=== PATIENT | female | born 1950 | race Caucasian/White ===

== ENCOUNTER 2017-02-21 16:37 | Emergency (ER) | payer MEDICARE, MEDICAID ==
[~2017-02-21] VITALS: Ht 157.5 cm; Wt 38.5 kg
[2017-02-21 16:56] VITALS: BP 112/76
== END 2017-02-21 17:52 | disposition home or self-care (01) ==
LOC: ED 17:46
DX: Z76.0 Encounter for issue of repeat prescription (principal); M54.5 Low back pain; G89.29 Other chronic pain; M19.90 Unspecified osteoarthritis, unspecified site
CPT/HCPCS: 99283

== ENCOUNTER 2017-10-12 19:36 | Inpatient (IN) | payer MEDICAID, MEDICARE ==
[~2017-10-12] VITALS: Ht 157.5 cm; Wt 43.8 kg
[2017-10-12] MEDS ORDERED: ALBUTEROL/IPRATROPIUM 2.5MG/0.5MG, 3 ML ONE (20:29)
[2017-10-12] MEDS ORDERED: SODIUM CHLORIDE FLUSH 10ML SYR IVF ONE (20:30)
[2017-10-12] MEDS ORDERED: ALBUTEROL/IPRATROPIUM 2.5MG/0.5MG, 3 ML NPPB ONE (20:30)
[2017-10-12] MEDS ORDERED: CEFTRIAXONE PMX 1GM/50ML 50 ML IVPB ONE (20:30)
[2017-10-12] MEDS ORDERED: AZITHROMYCIN 500 MG in SODIUM CHLORIDE 0.9% 250 ML IVPB ONE (20:30)
[2017-10-12] MEDS ORDERED: methylPREDNISolone SOD SUCC 125 MG/2 ML IVP ONE (20:30)
[2017-10-12] MEDS ORDERED: SODIUM CHLORIDE 0.9% 1,000ML IVBOLUS ONE (20:30)
[2017-10-12] MEDS ORDERED: HYDR-882 PO (20:31)
[2017-10-12] MEDS ORDERED: BACL-19 PO (20:31)
[2017-10-12] MEDS ORDERED: GABA600T2 PO (20:31)
[2017-10-12] MEDS ORDERED: methylPREDNISolone SOD SUCC 125 MG/2 ML ONE (20:39)
[2017-10-12] MEDS ORDERED: MORPHINE SULFATE 4 MG/ML, 1ML ONE (20:39)
[2017-10-12] MEDS: MORPHINE SULFATE 4 MG/ML, 1ML IVPush PRN (20:44)
[2017-10-12 20:56] LABS: MEAN CORPUSCULAR HEMOGLOBIN 26.2 pg (27.0-34.8); MEAN CORPUSCULAR HGB CONC 31.9 g/dL (32.4-35.8); MEAN CORPUSCULAR VOLUME 82.1 fL (80-100); MEAN PLATELET VOLUME 8.3 fL (7.4-10.4); PLATELET COUNT 383 x10^3/uL (130-400); RED BLOOD COUNT 4.56 x10^6/uL (3.82-5.3); RED CELL DISTRIBUTION WIDTH 22.4 % (9.6-15.2)
[2017-10-12] MEDS ORDERED: CEFTRIAXONE PMX 1GM/50ML 50 ML ONE (20:59)
[2017-10-12 21:03] LABS: ALANINE AMINOTRANSFERASE 24 U/L (12-78); ALBUMIN 2.6 g/dL (3.4-5.0); ANION GAP 3 mmol/L (5-15); CHLORIDE 106 mmol/L (98-107); CREATININE 0.62 mg/dL (0.55-1.02)
[2017-10-12 21:07] LABS: ALKALINE PHOSPHATASE 158 U/L (45-117); BILIRUBIN,TOTAL 0.4 mg/dL (0.2-1.0); TOTAL PROTEIN 8.7 g/dL (6.4-8.2)
[2017-10-12 21:08] LABS: BASOPHILS # (AUTO) 0.05 x10^3/uL (0-0.1); BASOPHILS % (AUTO) 0 % (0-1); EOSINOPHILS % (AUTO) 0 % (1-7); LYMPHOCYTES # (AUTO) 0.98 x10^3/uL (1-3.4); LYMPHOCYTES % (AUTO) 5 % (22-44); MD MORPH REVIEW ONLY; MONOCYTES # (AUTO) 0.34 x10^3/uL (0.2-0.8); MONOCYTES % (AUTO) 2 % (2-9); NEUTROPHILS % (AUTO) 94 % (42-75)
[2017-10-12 21:09] LABS: ANISOCYTOSIS 1+; POLYCHROMASIA 1+
[2017-10-12 21:10] LABS: <PLATELET ESTIMATE> ADEQUATE; LARGE PLATELETS 1+
[2017-10-12 21:14] LABS: TROPONIN I 0.162 ng/mL (0.000-0.045)
[2017-10-12] MEDS ORDERED: CEFTRIAXONE PMX 1GM/50ML 50 ML IV SCH (23:30)
[2017-10-12] MEDS ORDERED: ACETAMINOPHEN 325 MG TABLET PO PRN (23:30)
[2017-10-12] MEDS ORDERED: TEMPLATE NON-FORMULARY MED. (Gabapentin** 600 MG) PO SCH (23:30)
[2017-10-12] MEDS ORDERED: GUAIFENESIN/DM 200-20MG, 10ML UDC PO PRN (23:30)
[2017-10-12] MEDS ORDERED: BISACODYL 10 MG SUPP PR PRN (23:30)
[2017-10-12] MEDS ORDERED: AZITHROMYCIN 500 MG in SODIUM CHLORIDE 0.9% 250 ML IV SCH (23:30)
[2017-10-12] MEDS ORDERED: ONDANSETRON 2MG/ML, 2ML IVPush PRN (23:30)
[2017-10-12] MEDS ORDERED: POLYETHYLENE GLYCOL 17 GM PACKET PO PRN (23:30)
[2017-10-13] MEDS ORDERED: methylPREDNISolone SOD SUCC 125 MG/2 ML ONE ×2 (00:41→07:00)
[2017-10-13] MEDS ORDERED: HEPARIN 5,000 UNITS/ML, 1ML ONE ×2 (00:41→08:38)
[2017-10-13] MEDS ORDERED: MORPHINE SULFATE 4 MG/ML, 1ML ONE (00:41)
[2017-10-13] MEDS ORDERED: GABAPENTIN 300 MG CAPSULE ONE ×3 (00:41→09:33)
[2017-10-13] MEDS: methylPREDNISolone SOD SUCC 125 MG/2 ML IVPush SCH ×4 (00:51→20:10)
[2017-10-13] MEDS: MORPHINE SULFATE 4 MG/ML, 1ML IVPush PRN (00:51)
[2017-10-13] MEDS: HEPARIN 5,000 UNITS/ML, 1ML SQ SCH ×3 (00:51→17:22)
[2017-10-13] MEDS: SODIUM CHLORIDE 0.9% 1,000 ML IV SCH ×2 (00:52→09:21)
[2017-10-13] MEDS ORDERED: NICOTINE 7 MG/24 HR PATCH.TD24 ONE (01:50)
[2017-10-13] MEDS: NICOTINE 7 MG/24 HR PATCH.TD24 TD SCH ×2 (01:56→23:36)
[2017-10-13] MEDS: BACLOFEN 10 MG TABLET PO SCH ×5 (01:56→20:11)
[2017-10-13 02:49] LABS: MEAN CORPUSCULAR HEMOGLOBIN 26.6 pg (27.0-34.8); MEAN CORPUSCULAR HGB CONC 31.5 g/dL (32.4-35.8); MEAN CORPUSCULAR VOLUME 84.2 fL (80-100); MEAN PLATELET VOLUME 8.3 fL (7.4-10.4); PLATELET COUNT 315 x10^3/uL (130-400); RED BLOOD COUNT 4.15 x10^6/uL (3.82-5.3); RED CELL DISTRIBUTION WIDTH 22.1 % (9.6-15.2)
[2017-10-13 02:55] LABS: ALBUMIN 2.3 g/dL (3.4-5.0); ANION GAP 4 mmol/L (5-15); CALCIUM 8.2 mg/dL (8.5-10.1); CHLORIDE 108 mmol/L (98-107)
[2017-10-13 03:00] LABS: ALANINE AMINOTRANSFERASE 20 U/L (12-78); ALKALINE PHOSPHATASE 136 U/L (45-117); BILIRUBIN,TOTAL 0.5 mg/dL (0.2-1.0); TOTAL PROTEIN 7.7 g/dL (6.4-8.2)
[2017-10-13 03:06] LABS: TROPONIN I 0.156 ng/mL (0.000-0.045)
[2017-10-13 03:26] LABS: MD YES
[2017-10-13 03:28] LABS: ANISOCYTOSIS 1+; LYMPH#(MANUAL) 0.39 x10^3/uL (1-3.4); LYMPHS% (MANUAL) 2 % (22-44); MONOS#(MANUAL) 0.19 x10^3/uL (0.3-2.7); MONOS% (MANUAL) 1 % (2-9); POLYCHROMASIA 1+; SEG#(MANUAL) 18.72 x10^3/uL (1.8-6.8); SEGS% (MANUAL) 97 % (42-75)
[2017-10-13 03:29] LABS: <PLATELET ESTIMATE> ADEQUATE; LARGE PLATELETS 1+
[2017-10-13 03:36] LABS: HEMOGLOBIN A1C 6.4 % (4.2-6.3)
[2017-10-13] MEDS ORDERED: ALBUTEROL/IPRATROPIUM 2.5MG/0.5MG, 3 ML ONE ×3 (03:36→10:26)
[2017-10-13] MEDS ORDERED: ALBUTEROL/IPRATROPIUM 2.5MG/0.5MG, 3 ML NPPB PRN (04:00)
[2017-10-13] MEDS: ALBUTEROL/IPRATROPIUM 2.5MG/0.5MG, 3 ML NPPB SCH ×4 (07:01→20:55)
[2017-10-13] MEDS ORDERED: SENNA/DOCUSATE TABLET ONE (08:38)
[2017-10-13 09:12] LABS: TROPONIN I 0.113 ng/mL (0.000-0.045)
[2017-10-13] MEDS: SENNA/DOCUSATE TABLET PO SCH (09:27)
[2017-10-13] MEDS: GABAPENTIN 300 MG CAPSULE PO SCH ×2 (09:28→20:10)
[2017-10-13 09:49] LABS: RAPID INFLUENZA A Negative (Negative); RAPID INFLUENZA B Negative (Negative)
[2017-10-13] MEDS ORDERED: CEFTRIAXONE 1,000 MG in DEXTROSE 5% 50 ML IV SCH (14:00)
[2017-10-13 14:33] VITALS: BP 96/60
[2017-10-13] MEDS ORDERED: FUROSEMIDE 20 MG/2 ML IV ONE (16:30)
[2017-10-13] MEDS ORDERED: CEFTRIAXONE PMX 2GM/50ML 50 ML IV SCH (17:00)
[2017-10-13 17:03] LABS: MICROSCOPIC INDICATED
[2017-10-13 17:13] LABS: CULTURE INDICATED? YES
[2017-10-13] MEDS: ENOXAPARIN 40 MG/0.4 ML SQ SCH (17:44)
[2017-10-13 19:13] LABS: CLOSTRIDIUM DIFFICILE ANTIGEN NEGATIVE; CLOSTRIDIUM DIFFICILE TOXIN NEGATIVE (Negative)
[2017-10-13 21:06] VITALS: BP 133/75
[2017-10-13] MEDS: TEMAZEPAM 15 MG CAPSULE PO PRN (22:06)
[2017-10-13] MEDS: AZITHROMYCIN 500 MG in SODIUM CHLORIDE 0.9% 250 ML IV SCH (23:37)
[2017-10-14] MEDS: CEFTRIAXONE 2 GM in DEXTROSE 5% 50 ML IV SCH (02:49)
[2017-10-14] MEDS: methylPREDNISolone SOD SUCC 125 MG/2 ML IVPush SCH ×3 (02:49→18:17)
[2017-10-14] MEDS: NICOTINE 7 MG/24 HR PATCH.TD24 TD SCH (02:49)
[2017-10-14 03:19] VITALS: BP 115/72
[2017-10-14 06:53] VITALS: BP 112/63
[2017-10-14] MEDS: ALBUTEROL/IPRATROPIUM 2.5MG/0.5MG, 3 ML NPPB SCH ×4 (07:31→21:45)
[2017-10-14] MEDS: SENNA/DOCUSATE TABLET PO SCH (09:00)
[2017-10-14] MEDS: GABAPENTIN 300 MG CAPSULE PO SCH ×2 (09:19→21:13)
[2017-10-14] MEDS: BACLOFEN 10 MG TABLET PO SCH ×3 (09:19→21:13)
[2017-10-14 09:24] LABS: BASOPHILS % (AUTO) 0 % (0-1); EOSINOPHILS % (AUTO) 0 % (1-7); LYMPHOCYTES # (AUTO) 0.81 x10^3/uL (1-3.4); LYMPHOCYTES % (AUTO) 7 % (22-44); MEAN CORPUSCULAR HEMOGLOBIN 26.6 pg (27.0-34.8); MEAN CORPUSCULAR HGB CONC 32.4 g/dL (32.4-35.8); MEAN CORPUSCULAR VOLUME 82.1 fL (80-100); MEAN PLATELET VOLUME 8.4 fL (7.4-10.4); MONOCYTES # (AUTO) 0.32 x10^3/uL (0.2-0.8); MONOCYTES % (AUTO) 3 % (2-9); NEUTROPHILS # (AUTO) 10.28 x10^3/uL (1.8-6.8); NEUTROPHILS % (AUTO) 90 % (42-75); PLATELET COUNT 361 x10^3/uL (130-400); RED BLOOD COUNT 3.43 x10^6/uL (3.82-5.3); RED CELL DISTRIBUTION WIDTH 21.7 % (9.6-15.2)
[2017-10-14 09:25] LABS: MD NO
[2017-10-14 09:30] LABS: ALANINE AMINOTRANSFERASE 34 U/L (12-78); ALBUMIN 2.2 g/dL (3.4-5.0); ANION GAP 5 mmol/L (5-15); CALCIUM 8.3 mg/dL (8.5-10.1); CHLORIDE 104 mmol/L (98-107); CREATININE 0.65 mg/dL (0.55-1.02)
[2017-10-14 09:33] LABS: ALKALINE PHOSPHATASE 126 U/L (45-117); BILIRUBIN,TOTAL 0.2 mg/dL (0.2-1.0); TOTAL PROTEIN 6.8 g/dL (6.4-8.2)
[2017-10-14 09:40] LABS: HEMOGRAM NOTE RECHECKED
[2017-10-14 13:24] VITALS: BP 125/70
[2017-10-14] MEDS: ENOXAPARIN 40 MG/0.4 ML SQ SCH (18:17)
[2017-10-14 19:35] VITALS: BP 116/64
[2017-10-14] MEDS: TEMAZEPAM 15 MG CAPSULE PO PRN (21:13)
[2017-10-15] MEDS: methylPREDNISolone SOD SUCC 125 MG/2 ML IVPush SCH ×2 (00:01→05:41)
[2017-10-15] MEDS: AZITHROMYCIN 500 MG in SODIUM CHLORIDE 0.9% 250 ML IV SCH (00:01)
[2017-10-15 02:55] VITALS: BP_SYST 124; BP_SYST 130; BP_DIAS 63; BP_DIAS 66
[2017-10-15] MEDS: CEFTRIAXONE 2 GM in DEXTROSE 5% 50 ML IV SCH (03:18)
[2017-10-15] MEDS: NICOTINE 7 MG/24 HR PATCH.TD24 TD SCH (03:18)
[2017-10-15 05:36] LABS: BASOPHILS # (AUTO) 0.01 x10^3/uL (0-0.1); BASOPHILS % (AUTO) 0 % (0-1); EOSINOPHILS % (AUTO) 0 % (1-7); LYMPHOCYTES # (AUTO) 0.77 x10^3/uL (1-3.4); LYMPHOCYTES % (AUTO) 8 % (22-44); MD NO; MEAN CORPUSCULAR HEMOGLOBIN 26.4 pg (27.0-34.8); MEAN CORPUSCULAR HGB CONC 31.8 g/dL (32.4-35.8); MEAN CORPUSCULAR VOLUME 82.8 fL (80-100); MEAN PLATELET VOLUME 7.9 fL (7.4-10.4); MONOCYTES # (AUTO) 0.21 x10^3/uL (0.2-0.8); MONOCYTES % (AUTO) 2 % (2-9); NEUTROPHILS # (AUTO) 9.08 x10^3/uL (1.8-6.8); NEUTROPHILS % (AUTO) 90 % (42-75); PLATELET COUNT 396 x10^3/uL (130-400); RED BLOOD COUNT 3.51 x10^6/uL (3.82-5.3); RED CELL DISTRIBUTION WIDTH 21.3 % (9.6-15.2)
[2017-10-15 05:46] LABS: CHLORIDE 105 mmol/L (98-107)
[2017-10-15 05:57] LABS: ALANINE AMINOTRANSFERASE 60 U/L (12-78); ALBUMIN 2.2 g/dL (3.4-5.0); ALKALINE PHOSPHATASE 118 U/L (45-117); ANION GAP 6 mmol/L (5-15); BILIRUBIN,TOTAL 0.5 mg/dL (0.2-1.0); CALCIUM 8.3 mg/dL (8.5-10.1); CREATININE 0.61 mg/dL (0.55-1.02); TOTAL PROTEIN 6.4 g/dL (6.4-8.2)
[2017-10-15] MEDS: ALBUTEROL/IPRATROPIUM 2.5MG/0.5MG, 3 ML NPPB SCH ×4 (06:24→20:35)
[2017-10-15 07:26] VITALS: BP 130/66
[2017-10-15] MEDS: GABAPENTIN 300 MG CAPSULE PO SCH ×2 (07:28→19:50)
[2017-10-15] MEDS: BACLOFEN 10 MG TABLET PO SCH ×3 (07:28→19:50)
[2017-10-15] MEDS: SENNA/DOCUSATE TABLET PO SCH (07:28)
[2017-10-15 14:06] VITALS: BP 142/79
[2017-10-15] MEDS: ENOXAPARIN 40 MG/0.4 ML SQ SCH (17:30)
[2017-10-15 20:00] VITALS: BP 158/76
[2017-10-15] MEDS: TEMAZEPAM 15 MG CAPSULE PO PRN (22:09)
[2017-10-16] MEDS: AZITHROMYCIN 500 MG in SODIUM CHLORIDE 0.9% 250 ML IV SCH (00:12)
[2017-10-16 02:00] VITALS: BP 131/68
[2017-10-16 05:55] LABS: CHLORIDE 103 mmol/L (98-107)
[2017-10-16 06:05] LABS: ALANINE AMINOTRANSFERASE 64 U/L (12-78); ALBUMIN 2.3 g/dL (3.4-5.0); ALKALINE PHOSPHATASE 107 U/L (45-117); ANION GAP 3 mmol/L (5-15); BILIRUBIN,TOTAL 0.4 mg/dL (0.2-1.0); CALCIUM 8.4 mg/dL (8.5-10.1); CREATININE 0.49 mg/dL (0.55-1.02); TOTAL PROTEIN 6.7 g/dL (6.4-8.2)
[2017-10-16 06:08] LABS: BASOPHILS # (AUTO) 0.02 x10^3/uL (0-0.1); BASOPHILS % (AUTO) 0 % (0-1); EOSINOPHILS % (AUTO) 0 % (1-7); LYMPHOCYTES # (AUTO) 2.19 x10^3/uL (1-3.4); LYMPHOCYTES % (AUTO) 19 % (22-44); MD NO; MEAN CORPUSCULAR HEMOGLOBIN 26.7 pg (27.0-34.8); MEAN CORPUSCULAR HGB CONC 31.3 g/dL (32.4-35.8); MEAN CORPUSCULAR VOLUME 85.3 fL (80-100); MEAN PLATELET VOLUME 8.1 fL (7.4-10.4); MONOCYTES # (AUTO) 0.83 x10^3/uL (0.2-0.8); MONOCYTES % (AUTO) 7 % (2-9); NEUTROPHILS % (AUTO) 74 % (42-75); PLATELET COUNT 449 x10^3/uL (130-400); RED BLOOD COUNT 3.89 x10^6/uL (3.82-5.3)
[2017-10-16] MEDS: NICOTINE 7 MG/24 HR PATCH.TD24 TD SCH (06:12)
[2017-10-16] MEDS: CEFTRIAXONE 2 GM in DEXTROSE 5% 50 ML IV SCH (06:13)
[2017-10-16 07:17] VITALS: BP 137/69
[2017-10-16] MEDS: ALBUTEROL/IPRATROPIUM 2.5MG/0.5MG, 3 ML NPPB SCH ×4 (07:40→20:30)
[2017-10-16] MEDS: SENNA/DOCUSATE TABLET PO SCH (09:00)
[2017-10-16] MEDS: BACLOFEN 10 MG TABLET PO SCH ×3 (09:19→20:58)
[2017-10-16] MEDS: GABAPENTIN 300 MG CAPSULE PO SCH ×2 (09:20→20:58)
[2017-10-16 14:17] VITALS: BP 134/67
[2017-10-16] MEDS: ENOXAPARIN 40 MG/0.4 ML SQ SCH (16:31)
[2017-10-16 20:00] VITALS: BP 159/64
[2017-10-16] MEDS: TEMAZEPAM 15 MG CAPSULE PO PRN (21:44)
[2017-10-17] MEDS: AZITHROMYCIN 500 MG in SODIUM CHLORIDE 0.9% 250 ML IV SCH (01:01)
[2017-10-17 02:00] VITALS: BP 144/72
[2017-10-17] MEDS: CEFTRIAXONE 2 GM in DEXTROSE 5% 50 ML IV SCH (05:29)
[2017-10-17] MEDS: NICOTINE 7 MG/24 HR PATCH.TD24 TD SCH (05:29)
[2017-10-17] MEDS: ALBUTEROL/IPRATROPIUM 2.5MG/0.5MG, 3 ML NPPB SCH ×2 (07:00→11:00)
[2017-10-17 08:04] VITALS: BP 128/69
[2017-10-17] MEDS: BACLOFEN 10 MG TABLET PO SCH (08:14)
[2017-10-17] MEDS: GABAPENTIN 300 MG CAPSULE PO SCH (08:14)
[2017-10-17] MEDS: SENNA/DOCUSATE TABLET PO SCH ×2 (08:14→08:17)
[2017-10-17] MEDS ORDERED: PRED10TA PO (08:34)
== END 2017-10-17 15:26 | disposition home or self-care (01) | DRG 871 ==
LOC: ED 21:42 → EDIP 22:38 → 4EST 10-13 13:35
PROVIDERS: ADMIT Hospitalist; ATTEND Hospitalist
DX: A41.9 Sepsis, unspecified organism (principal); J96.01 Acute respiratory failure with hypoxia; E43 Unspecified severe protein-calorie malnutrition; J18.0 Bronchopneumonia, unspecified organism; J81.1 Chronic pulmonary edema; Z99.81 Dependence on supplemental oxygen; N39.0 Urinary tract infection, site not specified; J44.1 Chronic obstructive pulmonary disease with (acute) exacerbation; J44.0 Chronic obstructive pulmonary disease with (acute) lower respiratory infection; F11.20 Opioid dependence, uncomplicated; M54.9 Dorsalgia, unspecified; R73.9 Hyperglycemia, unspecified; M19.90 Unspecified osteoarthritis, unspecified site; I73.9 Peripheral vascular disease, unspecified; G89.29 Other chronic pain; F17.210 Nicotine dependence, cigarettes, uncomplicated; D64.9 Anemia, unspecified; E74.39 Other disorders of intestinal carbohydrate absorption; Z85.41 Personal history of malignant neoplasm of cervix uteri; Z90.89 Acquired absence of other organs; Z89.512 Acquired absence of left leg below knee
CPT/HCPCS: 36415; 71045; 80053; 81001; 83036; 83605; 83735; 83880; 84100; 84145; 84484; 85025; 87040; 87070; 87086; 87205; 87324; 87400; 93005; 93306; 94640; 96365; 96368; 96375; J0456; J0696; J1644; J1650; J7620; J1940; J2930; J7030; J7050; J7512

== ENCOUNTER 2017-12-07 18:03 | Inpatient (IN) | payer MEDICARE ==
[~2017-12-07] VITALS: Ht 152.4 cm; Wt 61.5 kg
[~2017-12-07 18:03] MED LIST: BACL-19 PO; GABA600T2 PO; HYDR-882 PO; PRED10TA PO
[2017-12-07] MEDS ORDERED: AMPICILLIN/SULBACTAM 1,500 MG in SODIUM CHLORIDE 0.9% 50 ML IV STA (18:28)
[2017-12-07] MEDS ORDERED: ALBUTEROL SULFATE 2.5 MG/3 ML NPPB ONE (18:30)
[2017-12-07] MEDS ORDERED: GABA300C10 PO (18:38)
[2017-12-07] MEDS ORDERED: UMEC1DIS INH (18:40)
[2017-12-07] MEDS ORDERED: ALBUTEROL SULFATE 2.5 MG/3 ML ONE (18:42)
[2017-12-07 18:50] LABS: BASOPHILS # (AUTO) 0.12 x10^3/uL (0-0.1); BASOPHILS % (AUTO) 1 % (0-1); EOSINOPHILS # (AUTO) 0.36 x10^3/uL (0-0.4); EOSINOPHILS % (AUTO) 4 % (1-7); LYMPHOCYTES # (AUTO) 2.53 x10^3/uL (1-3.4); LYMPHOCYTES % (AUTO) 27 % (22-44); MD NO; MEAN CORPUSCULAR HEMOGLOBIN 27.7 pg (27.0-34.8); MEAN CORPUSCULAR HGB CONC 32.1 g/dL (32.4-35.8); MEAN CORPUSCULAR VOLUME 86.2 fL (80-100); MEAN PLATELET VOLUME 9.1 fL (7.4-10.4); MONOCYTES # (AUTO) 0.81 x10^3/uL (0.2-0.8); MONOCYTES % (AUTO) 9 % (2-9); NEUTROPHILS # (AUTO) 5.72 x10^3/uL (1.8-6.8); NEUTROPHILS % (AUTO) 60 % (42-75); PLATELET COUNT 358 x10^3/uL (130-400); RED BLOOD COUNT 4.08 x10^6/uL (3.82-5.3); RED CELL DISTRIBUTION WIDTH 20.1 % (9.6-15.2)
[2017-12-07 19:00] LABS: ALBUMIN 3.1 g/dL (3.4-5.0); ANION GAP 5 mmol/L (5-15); CALCIUM 8.7 mg/dL (8.5-10.1); CHLORIDE 106 mmol/L (98-107); CREATININE 0.63 mg/dL (0.55-1.02)
[2017-12-07] MEDS ORDERED: MUPIROCIN OINT 2%, 22GM TP SCH (21:00)
[2017-12-07 21:30] VITALS: BP 108/67
[2017-12-07] MEDS ORDERED: SODIUM CHLORIDE 0.9% 1,000 ML IV SCH (21:42)
[2017-12-07] MEDS ORDERED: morphine SULFATE 10 MG/ML, 1ML IVPush PRN (22:00)
[2017-12-07] MEDS ORDERED: HYDROcodone/APAP 5/325 TABLET PO PRN (22:00)
[2017-12-07] MEDS ORDERED: DOCUSATE 100 MG CAPSULE PO PRN (22:00)
[2017-12-07] MEDS ORDERED: hydrALAzine 20 MG/ML, 1ML IVPush PRN (22:00)
[2017-12-07] MEDS ORDERED: ALBUTEROL/IPRATROPIUM 2.5MG/0.5MG, 3 ML NPPB PRN (22:00)
[2017-12-07] MEDS ORDERED: ONDANSETRON 2MG/ML, 2ML IVPush PRN (22:00)
[2017-12-07] MEDS ORDERED: ONDANSETRON ODT 4 MG PO PRN (22:00)
[2017-12-07] MEDS ORDERED: POLYETHYLENE GLYCOL 17 GM PACKET PO PRN (22:00)
[2017-12-07] MEDS ORDERED: VANCOMYCIN PMX 1GM/200ML 200 ML IV ONE ×2 (22:00→22:30)
[2017-12-07] MEDS ORDERED: ACETAMINOPHEN 325 MG TABLET PO PRN (22:00)
[2017-12-07] MEDS ORDERED: BISACODYL 10 MG SUPP PR PRN (22:00)
[2017-12-07] MEDS ORDERED: PROMETHAZINE 25 MG/ML, 1ML IM PRN (22:00)
[2017-12-07] MEDS ORDERED: VANCOMYCIN PER PHARMACY MC PRN (22:00)
[2017-12-07] MEDS: NICOTINE 7 MG/24 HR PATCH.TD24 TD SCH (22:17)
[2017-12-07] MEDS: HEPARIN 5,000 UNITS/ML, 1ML SQ SCH (22:17)
[2017-12-07] MEDS: BACLOFEN 10 MG TABLET PO SCH (22:17)
[2017-12-07] MEDS: GABAPENTIN 300 MG CAPSULE PO SCH (22:17)
[2017-12-07] MEDS: AMPICILLIN/SULBACTAM 3 GM in SODIUM CHLORIDE 0.9% 100 ML IV SCH (22:21)
[2017-12-07 22:28] LABS: HEMOGLOBIN A1C 5.9 % (4.2-6.3)
[2017-12-07] MEDS ORDERED: PHARMACOKINETIC CONSULTATION MC ONE (22:30)
[2017-12-07] MEDS ORDERED: PHARMACOKINETIC MONITORING MC PRN (22:30)
[2017-12-07 22:31] LABS: FREE T4 (FREE THYROXINE) 1.13 ng/dL (0.76-1.46); THYROID STIMULATING HORMONE 1.25 mIU/L (0.358-3.740)
[2017-12-08 02:00] VITALS: BP 109/61
[2017-12-08 04:00] VITALS: BP 127/77
[2017-12-08] MEDS: AMPICILLIN/SULBACTAM 3 GM in SODIUM CHLORIDE 0.9% 100 ML IV SCH (04:21)
[2017-12-08 05:10] LABS: BASOPHILS # (AUTO) 0.06 x10^3/uL (0-0.1); BASOPHILS % (AUTO) 1 % (0-1); EOSINOPHILS # (AUTO) 0.56 x10^3/uL (0-0.4); EOSINOPHILS % (AUTO) 6 % (1-7); LYMPHOCYTES # (AUTO) 2.66 x10^3/uL (1-3.4); LYMPHOCYTES % (AUTO) 30 % (22-44); MD NO; MEAN CORPUSCULAR HEMOGLOBIN 27.6 pg (27.0-34.8); MEAN CORPUSCULAR HGB CONC 32.2 g/dL (32.4-35.8); MEAN CORPUSCULAR VOLUME 85.8 fL (80-100); MEAN PLATELET VOLUME 8.7 fL (7.4-10.4); MONOCYTES # (AUTO) 0.62 x10^3/uL (0.2-0.8); MONOCYTES % (AUTO) 7 % (2-9); NEUTROPHILS # (AUTO) 4.85 x10^3/uL (1.8-6.8); NEUTROPHILS % (AUTO) 56 % (42-75); PLATELET COUNT 316 x10^3/uL (130-400); RED BLOOD COUNT 3.66 x10^6/uL (3.82-5.3); RED CELL DISTRIBUTION WIDTH 20.8 % (9.6-15.2)
[2017-12-08 05:26] LABS: CHLORIDE 107 mmol/L (98-107)
[2017-12-08 05:35] LABS: ALANINE AMINOTRANSFERASE 13 U/L (12-78); ALBUMIN 2.4 g/dL (3.4-5.0); ALKALINE PHOSPHATASE 97 U/L (45-117); ANION GAP 7 mmol/L (5-15); BILIRUBIN,TOTAL 0.2 mg/dL (0.2-1.0); CALCIUM 7.7 mg/dL (8.5-10.1); CHOL/HDL RATIO 5.6; CHOLESTEROL, TOTAL 96 mg/dL (140-239); CREATININE 0.52 mg/dL (0.55-1.02); HDL CHOL % 18 % (28-40); HDL CHOLESTEROL (DIRECT) 17 mg/dL (40-60); LDL CHOLESTEROL,CALCULATED 54 mg/dL (54-169); LDL/HDL RATIO 3.2 (0.5-3.0); TOTAL PROTEIN 6.4 g/dL (6.4-8.2); TRIGLYCERIDES 126 mg/dL (50-200); VLDL CHOLESTEROL 25 mg/dL (0-25)
[2017-12-08] MEDS: HEPARIN 5,000 UNITS/ML, 1ML SQ SCH ×3 (05:46→20:30)
[2017-12-08 08:00] VITALS: BP 115/68
[2017-12-08] MEDS: GABAPENTIN 300 MG CAPSULE PO SCH ×3 (08:49→20:29)
[2017-12-08] MEDS: BACLOFEN 10 MG TABLET PO SCH ×3 (08:49→20:30)
[2017-12-08] MEDS ORDERED: ALBUTEROL/IPRATROPIUM 2.5MG/0.5MG, 3 ML NPPB SCH (09:00)
[2017-12-08 09:33] LABS: MICROSCOPIC INDICATED
[2017-12-08 10:01] LABS: CULTURE INDICATED? NO
[2017-12-08] MEDS: CEPHALEXIN 500 MG CAPSULE PO SCH ×3 (12:01→20:29)
[2017-12-08 13:59] VITALS: BP 121/58
[2017-12-08 19:10] VITALS: BP 107/64
[2017-12-08] MEDS: SILVER SULF. CRM 1% , 25GM TP SCH (20:29)
[2017-12-08] MEDS: NICOTINE 7 MG/24 HR PATCH.TD24 TD SCH (22:18)
[2017-12-09 01:27] VITALS: BP 129/84
[2017-12-09] MEDS: CEPHALEXIN 500 MG CAPSULE PO SCH ×2 (05:47→10:53)
[2017-12-09] MEDS: HEPARIN 5,000 UNITS/ML, 1ML SQ SCH (05:48)
[2017-12-09 07:49] VITALS: BP 137/71
[2017-12-09] MEDS: SILVER SULF. CRM 1% , 25GM TP SCH (09:47)
[2017-12-09] MEDS: BACLOFEN 10 MG TABLET PO SCH (09:47)
[2017-12-09] MEDS: GABAPENTIN 300 MG CAPSULE PO SCH (09:47)
[2017-12-09] MEDS ORDERED: SILV25CR6 TP (10:43)
[2017-12-09] MEDS ORDERED: CEPH-376 PO (10:43)
[2017-12-10] MEDS ORDERED: FLUTICASONE/VILANTEROL 100-25MCG/INH INH SCH (09:00)
== END 2017-12-09 12:00 | disposition home or self-care (01) | DRG 154 ==
LOC: ED 18:37 → 4WST 21:36
PROVIDERS: ADMIT Internal Medicine; ATTEND Internal Medicine
DX: T28.0XXA Burn of mouth and pharynx, initial encounter (principal); J96.01 Acute respiratory failure with hypoxia; E44.0 Moderate protein-calorie malnutrition; J96.11 Chronic respiratory failure with hypoxia; J01.00 Acute maxillary sinusitis, unspecified; D64.9 Anemia, unspecified; E87.6 Hypokalemia; F17.210 Nicotine dependence, cigarettes, uncomplicated; J44.9 Chronic obstructive pulmonary disease, unspecified; I73.9 Peripheral vascular disease, unspecified; G89.29 Other chronic pain; X08.8XXA Exposure to other specified smoke, fire and flames, initial encounter; M54.9 Dorsalgia, unspecified; L01.01 Non-bullous impetigo; M19.90 Unspecified osteoarthritis, unspecified site; Z89.512 Acquired absence of left leg below knee; Z79.899 Other long term (current) drug therapy; Z90.89 Acquired absence of other organs; Z88.1 Allergy status to other antibiotic agents; Z99.81 Dependence on supplemental oxygen; Z68.26 Body mass index [BMI] 26.0-26.9, adult; Y93.89 Activity, other specified; Y92.89 Other specified places as the place of occurrence of the external cause; Y99.8 Other external cause status
CPT/HCPCS: 36415; 71045; 80048; 80053; 80061; 81001; 82040; 83036; 83735; 84439; 84443; 85025; 87040; 94640; 96365; J0295; J1644; J3370; J7613; J7620; J7030